=== PATIENT | female | born 1950 | race Caucasian/White ===

== ENCOUNTER 2016-12-17 11:08 | Observation (INO) | payer MEDICARE, OTHER ==
[~2016-12-17] VITALS: Ht 152.4 cm; Wt 125.6 kg
[~2016-12-17 11:08] MED LIST: ASPI-535 PO; BENA1TAB3 PO; DOCU-144 PO; DULO30CA45 PO; FAMO40TA38 PO; HYDR-762 PO; HYDR25TA6 PO; ICNCLON PO; INSU100V23 SC; LAS20I IV; LEVEM SQ; METO-448 PO; POTA10TA97 PO; SIMV40TA2 PO
--- NOTE | 2016-12-17 11:44 | ERA ---
ER Documentation Chief Complaint Date/Time DATE: 12/17/16 TIME: 11:44 Chief Complaint FEELS TIRED, FROM WOUND CARE PREVENTION HPI The patient is a 65-year-old female, presenting to the ER from the wound care center because of nausea and high blood glucose of 305. She complains of feeling tired for the last 12 hours, denies syncope, near syncope, neck pain, chest pain. She he has chronic shortness of breath, denies pain, vomiting, dysuria, diarrhea. She has been going to the wound care center for her chronic bilateral lower extremity wound, c/o of left leg pain for a few weeks. She does not smoke nor drink Past Medical history: Diabetes mellitus, hypertension, dyslipidemia, CAD, history of CHF Past Surgical history: CABG 15 years ago ROS All systems reviewed and are negative except as per history of present illness. Medications Home Meds Reported Medications Insulin Aspart* (Novolog Insulin Pen*) 100 Unit/Ml Soln, 30 UNIT SC WITH MEALS, EA 12/17/16 Insulin Glargine* (Lantus*) 100 Unit/Ml Soln, 50 UNIT SC QHS, #1 VIAL 12/17/16 Apixaban* (Eliquis*) 2.5 Mg Tablet, 2.5 MG PO BID, TAB 12/17/16 Carvedilol* (Carvedilol*) 6.25 Mg Tablet, 6.25 MG PO BID, #60 TAB 12/17/16 Gabapentin* (Gabapentin*) 300 Mg Capsule, 300 MG PO TID, #90 CAP 12/17/16 Simvastatin* (Zocor*) 40 Mg Tablet, 40 MG PO QHS, #30 TAB 12/17/16 Bumetanide* (Bumetanide*) 1 Mg Tablet, 1 MG PO DAILY, TAB 12/17/16 Furosemide* (Furosemide*) 40 Mg Tablet, 40 MG PO BID, TAB 12/17/16 Discontinued Reported Medications Insulin Regular, Human* (Novolin R*) 100 U/Ml Vial, 0 SC AC MEALS AND BEDTIME 08/30/11 Hydrocodone Bit-Acetaminophen* (Melvin*) 1 Tab Tablet, 1 TAB PO TID 08/30/11 Metoprolol Tartrate* (Lopressor*) 25 Mg Tab, 25 MG PO Q12 08/30/11 Furosemide* (Lasix*) 10 Mg/Ml Soln, 20 MG IV Q8 08/30/11 Potassium Chloride (Klor-Con) 10 Meq Tablet.sa, 10 MEQ PO TID 08/30/11 Insulin Detemir* (Levemir*) 100 U/Ml Vial, 50 U SQ DAILY 08/30/11 Hydrochlorothiazide (Hydrochlorothiazide) 25 Mg Tablet, 25 MG PO DAILY 08/30/11 Benazepril/Hydrochlorothiazide (Lotensin Hct 20-12.5 Tablet) 1 Tab Tablet, 1 TAB PO DAILY 08/30/11 Docusate Sodium* (Colace*) 100 Mg Capsule, 100 MG PO BID 08/30/11 Duloxetine Hcl* (Cymbalta*) 30 Mg Capsule.dr, 30 MG PO BID 08/30/11 Clonidine (Clonidine (Pediatric Compound)) 0.1 Mg/Ml Susp, 2 MG PO BID 08/30/11 Aspirin Ec (Aspir 81) 81 Mg Tablet.dr, 81 MG PO DAILY 08/30/11 Simvastatin* (Zocor*) 40 Mg Tablet, 40 MG PO HS 08/30/11 Famotidine* (Pepcid*) 40 Mg Tablet, 40 MG PO DAILY 08/30/11 Allergies Allergies: Coded Allergies: No Known Allergy (Verified , 12/17/16) PMhx/Soc History of Surgery: Yes Anesthesia Reaction: No Hx Neurological Disorder: No Hx Respiratory Disorders: No Hx Cardiac Disorders: Yes (CABG 8yrs ago,perm, HTN,Dyslipidimia) Hx Psychiatric Problems: No Hx Miscellaneous Medical Probl: Yes (dyslipidimia, HTN) Hx Alcohol Use: No Hx Substance Use: No Hx Tobacco Use: No Physical Exam Vitals Vital Signs Date Time Temp Pulse Resp B/P Pulse Ox O2 Delivery O2 Flow Rate FiO2 12/17/16 17:24 77 18 207/89 96 Room Air 12/17/16 16:31 79 18 166/139 96 Room Air 12/17/16 14:54 86 18 192/92 96 Room Air 12/17/16 13:30 88 18 193/103 96 Room Air 12/17/16 11:15 98.2 74 20 213/101 99 Physical Exam Const: No acute distress. Obese Head: Atraumatic. Eyes: Normal Conjunctiva. ENT: Normal External Ears, Nose and Mouth. Neck: Full range of motion. No meningismus. Resp: Basilar crackle Cardio: Regular rate and rhythm. Abd: Soft, obese, normal bowel sounds, non tender. Skin: No petechiae or rashes. Back: No midline or flank tenderness. Ext: Bilateral leg are minimal erythematous, mild edematous, minimal left calf tenderness Neur: Awake and alert. No focal deficit Psych: Normal Mood and Affect. Result Diagram: 12/17/16 1150 12/17/16 1150 Results 24 hrs Laboratory Tests Test 12/17/16 11:50 White Blood Count 6.310^3/ul Red Blood Count 4.1910^6/ul Hemoglobin 12.6g/dl Hematocrit 38.2% Mean Corpuscular Volume 91.2fl Mean Corpuscular Hemoglobin 30.1pg Mean Corpuscular Hemoglobin Concent 33.0g/dl Red Cell Distribution Width 12.9% Platelet Count 67400^3/UL Mean Platelet Volume 12.6fl Neutrophils % 68.0% Lymphocytes % 20.1% Monocytes % 10.0% Eosinophils % 0.9% Basophils % 0.5% Nucleated Red Blood Cells % 0.0/100WBC Neutrophils # 4.310^3/ul Lymphocytes # 1.310^3/ul Monocytes # 0.610^3/ul Eosinophils # 0.110^3/ul Basophils # 0.010^3/ul Nucleated Red Blood Cells # 0.010^3/ul Prothrombin Time 15.8Sec Prothrombin Time Ratio 1.2 INR International Normalized Ratio 1.25 Activated Partial Thromboplast Time 26.9Sec Sodium Level 142mmol/L Potassium Level 4.2mmol/L Chloride Level 104mmol/L Carbon Dioxide Level 28mmol/L Anion Gap 14 Blood Urea Nitrogen 24mg/dl Creatinine 1.13mg/dl Glucose Level 315mg/dl Calcium Level 8.5mg/dl Troponin I 0.024ng/ml B-Type Natriuretic Peptide 51115ED/ML Current Medications Medications (Trade) Dose Ordered Sig/Herlinda Route PRN Reason Start Time Stop Time Status Last Admin Dose Admin Furosemide (Lasix) 40 mg ONCE ONCE IV 12/17/16 14:00 12/17/16 14:01 DC 12/17/16 14:47 Nitroglycerin (Nitroglycerin 2% Oint) 1 inch ONCE ONCE TD 12/17/16 15:00 12/17/16 15:01 DC 12/17/16 14:47 Carvedilol (Coreg) 6.25 mg BID PO 12/17/16 21:00 Gabapentin (Neurontin) 300 mg TID PO 12/17/16 21:00 Atorvastatin Calcium (Lipitor) 20 mg DAILY@21 PO 12/17/16 21:00 Clonidine (Catapres) 0.2 mg ONCE ONCE PO 12/17/16 17:00 12/17/16 17:12 DC 12/17/16 17:22 Miscellaneous Information (* Miscellaneous Pharmacy Order) Discontinue current oral sulfonylur... ONCE ONCE XX 12/17/16 17:00 12/17/16 17:12 DC Diagnostic Test (Pha) (Accu-Chek) 1 ea 02 XX 12/18/16 02:00 Insulin Glargine (Lantus) 25 unit DAILY@08 SC 12/18/16 08:00 Insulin Aspart (Novolog Insulin Pen) 8 unit WITH MEALS SC 12/17/16 18:00 Miscellaneous Information (* Miscellaneous Pharmacy Order) HYPOGLYCEMIA PROTOCOL w... ONCE ONCE XX 12/17/16 17:00 12/17/16 17:12 DC Insulin Aspart (Novolog Insulin Pen) NOVOLOG *MILD* ALGORITHM WITH MEALS BEDTIME SC 12/17/16 18:00 Miscellaneous Information (* Miscellaneous Pharmacy Order) Discontinue all previ... ONCE ONCE XX 12/17/16 17:00 12/17/16 17:12 DC Lisinopril (Zestril) 5 mg DAILY PO 12/18/16 09:00 Furosemide (Lasix) 20 mg BID DIURETICS IV 12/17/16 18:00 IV Flush (NS 3 ml) 3 ml PER PROTOCOL IV 12/17/16 17:30 Ondansetron HCl (Zofran Inj) 4 mg Q6H PRN IV NAUSEA AND/OR VOMITING 12/17/16 17:30 Acetaminophen (Tylenol Tab) 650 mg Q6H PRN PO PAIN LEVEL 1-3 OR FEVER 12/17/16 17:30 Acetaminophen/ Hydrocodone Bitart (Melvin (5/325)) 1 tab Q6H PRN PO PAIN LEVEL 4-6 12/17/16 17:30 Heparin Sodium (Porcine) (Heparin (5000 Units/0.5 ml)) 5,000 unit Q8 SC 12/17/16 22:00 Miscellaneous Information 1 ea NOTE XX 12/17/16 17:30 Glucose (Glutose) 15 gm Q15M PRN PO DECREASED GLUCOSE 12/17/16 17:30 Glucose (Glutose) 22.5 gm Q15M PRN PO DECREASED GLUCOSE 12/17/16 17:30 Dextrose (D50w Syringe) 25 ml Q15M PRN IV DECREASED GLUCOSE 12/17/16 17:30 Dextrose (D50w Syringe) 50 ml Q15M PRN IV DECREASED GLUCOSE 12/17/16 17:30 Glucagon (Glucagen) 1 mg Q15M PRN IM DECREASED GLUCOSE 12/17/16 17:30 Glucose (Glutose) 15 gm Q15M PRN BUCCAL DECREASED GLUCOSE 12/17/16 17:30 Procedures/[place] [id number] Radiology Main Line: [phone] DIAGNOSTIC IMAGING REPORT Patient: NANCY FAUST : 1950 Age: 65 Sex: F MR #: [id number] DOS: 12/17/16 1151 Ordering MD: CATRACHITO DONOVAN MD Location: E/R Room/Bed: PROCEDURE: US Lower extremity Venous. CLINICAL INDICATION: Bilateral lower extremity edema TECHNIQUE: Multiple sonographic images of the bilateral lower extremity deep venous system was obtained utilizing grayscale, color-flow, compressive sonography and doppler imaging with augmentation. The images were reviewed on a PACS workstation. COMPARISON: None. FINDINGS: The study is suboptimal due to severe edema. There is normal compressibility and flow within the bilateral common femoral, femoral , posterior tibial and popliteal veins. RPTAT: AA IMPRESSION: No sonographic evidence for deep venous thrombosis. .Luisito Zacarias MD, Date Time Electronically viewed and signed by .Luisito Zacarias MD, on 12/17/2016 12: 50 .S/ CC: CATRACHITO DONOVAN MD [place] [address] [place] [address] Radiology Main Line: [phone] DIAGNOSTIC IMAGING REPORT Patient: NANCY FAUST : 1950 Age: 65 Sex: F MR #: [id number] DOS: 12/17/16 1151 Ordering MD: CATRACHITO DONOVAN MD Location: E/R Room/Bed: PROCEDURE: XR Chest. CLINICAL INDICATION: Chest pain TECHNIQUE: Single frontal view of the chest was obtained COMPARISON: CR PORT CHEST 01/20/2009 FINDINGS: The heart is enlarged. The thoracic aorta is calcified. The patient is status post sternotomy. The superior most fixation wire is broken. The lungs are clear. There is mild elevation of the right diaphragm. There is no pleural effusion or pneumothorax. RPTAT: AA IMPRESSION: Moderate cardiomegaly. The patient is status post sternotomy. The superior most fixation sternal wire is broken. Calcified aorta consistent with atherosclerotic disease. .Luisito Zacarias MD, MD Date Time Electronically viewed and signed by .Luisito Zacarias MD, MD on 12/17/2016 13: 18 .S/ CC: CATRACHITO DONOVAN MD EKG: Read by emergency physician Rate/Rhythm: Normal Sinus Rhythm 72 beats/min QRS, ST, T-waves: No ST elevation, no T inversion, RBBB Impression: Abnormal EKG MEDICAL MAKING DECISION: The patient is a 65-year-old female, presenting with acute CHF exacerbation, acute accelerated hypertension. She was treated with Lasix 40 mg IV and 1 inch of nitroglycerin ointment to the chest wall with good response The differential diagnoses considered include but are not limited to asthma, COPD, pneumonia, pulmonary embolus, pleural effusion, congestive heart failure. Departure Diagnosis: Primary Impression: CHF (congestive heart failure) Additional Impressions: Accelerated hypertension Thrombocytopenia Condition: Stable Comments I discussed the findings with the patient. I discussed the patient with the on- call hospitalist Dr. Tam at 2:30 PM who was made aware of the lab, the treatment, the patient condition. The patient is admitted to CATRACHITO Dunne MD Dec 17, 2016 11:44
[2016-12-17 12:13] LABS: BASOPHILS % 0.5 % (0.0-2.0); EOSINOPHILS # 0.1 10^3/ul (0.0-0.5); EOSINOPHILS % 0.9 % (0.0-7.0); HEMATOCRIT 38.2 % (37.0-47.0); HEMOGLOBIN 12.6 g/dl (12.0-16.0); LYMPHOCYTES # 1.3 10^3/ul (0.8-2.9); LYMPHOCYTES % 20.1 % (15.0-51.0); MEAN CORPUSCULAR HEMOGLOBIN 30.1 pg (29.0-33.0); MEAN CORPUSCULAR VOLUME 91.2 fl (82.0-101.0); MEAN PLATELET VOLUME 12.6 fl (7.4-10.4); MONOCYTE # 0.6 10^3/ul (0.3-0.9); NEUTROPHIL # 4.3 10^3/ul (1.6-7.5); PLATELET COUNT 125 10^3/UL (140-415); RED BLOOD COUNT 4.19 10^6/ul (4.20-5.40); RED CELL DISTRIBUTION WIDTH 12.9 % (11.5-14.5); WHITE BLOOD COUNT 6.3 10^3/ul (4.8-10.8)
[2016-12-17 12:28] LABS: CALCIUM 8.5 mg/dl (8.4-10.2); CREATININE 1.13 mg/dl (0.44-1.00); PARTIAL THROMBOPLASTIN TIME 26.9 Sec (25.0-35.0); POTASSIUM 4.2 mmol/L (3.5-5.1)
[2016-12-17 12:36] LABS: INR 1.25; PROTIME 15.8 Sec (12.2-14.2); PT RATIO 1.2
[2016-12-17 12:41] LABS: TROPONIN-I 0.024 ng/ml (0.00-0.12)
--- NOTE | 2016-12-17 12:50 | RADRPT ---
PROCEDURE: US Lower extremity Venous. CLINICAL INDICATION: Bilateral lower extremity edema TECHNIQUE: Multiple sonographic images of the bilateral lower extremity deep venous system was obt ained utilizing grayscale, color-flow, compressive sonography and doppler imaging with augmentation. The images were reviewed on a PACS workstation. COMPARISON: None. FINDINGS: The study is suboptimal due to severe edema. There is normal compressibility and flow within the bilateral common femoral, femoral , posterior ti bial and popliteal veins. RPTAT: AA IMPRESSION: No sonographic evidence for deep venous thrombosis. .Luisito Zacarias MD, MD Date Time Electronically viewed and signed by .Lusiito Zacarias MD, on 12/17/2016 12:50 .S/
--- NOTE | 2016-12-17 13:19 | RADRPT ---
PROCEDURE: XR Chest. CLINICAL INDICATION: Chest pain TECHNIQUE: Single frontal view of the chest was obtained COMPARISON: CR PORT CHEST 01/20/2009 FINDINGS: The heart is enlarged. The thoracic aorta is calcified. The patient is status post sternotomy. The superior most fixation wire is broken. The lungs are clear. There is mild elevation of the right diaphragm. There is no pleural effusion or pneumothorax. RPTAT: AA IMPRESSION: Moderate cardiomegaly. The patient is status post sternotomy. The superior most fixation sternal wire is broken. Calcified aorta consistent with atherosclerotic disease. .Luisito Zacarias MD, MD Date Time Electronically viewed and signed by .Luisito Zacarias MD, on 12/17/2016 13:18 .S/
[2016-12-17] MEDS ORDERED: FUROSEMIDE 40 MG INJ IV ONE (14:00)
[2016-12-17] MEDS ORDERED: FURO40TA4 PO (14:32)
[2016-12-17] MEDS ORDERED: BUME1TAB18 PO (14:33)
[2016-12-17] MEDS ORDERED: SIMV40TA2 PO (14:33)
[2016-12-17] MEDS ORDERED: GABA300C16 PO (14:34)
[2016-12-17] MEDS ORDERED: CARV6.2579 PO (14:35)
[2016-12-17] MEDS ORDERED: APIX2.5T PO (14:35)
[2016-12-17] MEDS ORDERED: NITROGLYCERIN 2% 1 GM OINT PKT TD ONE (15:00)
[2016-12-17] MEDS ORDERED: LANT3I SC (15:00)
[2016-12-17] MEDS ORDERED: NOVO3I SC (15:01)
--- NOTE | 2016-12-17 16:50 | HP ---
Date/Time of Note Date/Time of Note DATE: 12/17/16 TIME: 16:49 Assessment/Plan VTE Prophylaxis VTE Prophylaxis Intervention: heparin Assessment/Plan Chief Complaint/Hosp Course 1. Hypertensive urgency. The patient has been noncompliant with all her home medications. The patient will be started on appropriate antihypertensives. Patient will be started on CL inhibitors since the patient has underlying diabetes. 2. Type 2 diabetes mellitus with underlying hyperglycemia. The patient will be started on sliding scale insulin along with basal insulin and pre-meal insulin. Hemoglobin A1c will be obtained to evaluate the blood glucose control over the past few weeks. 3. Bilateral lower extremity lymphedema with venous stasis changes. The patient follows up with amputation prevention center. Patient has no evidence of any underlying cellulitis. 4. CAD. Status post CABG. The patient will be continued on her cardiac medications. 5. Possible underlying CHF. Systolic versus diastolic dysfunction. No evidence of any exacerbation. Will obtain a 2D echocardiogram to evaluate the LVEF. Plan: The patient will be admitted to inpatient telemetry floor. The patient will be started on a carbohydrate controlled diet. The patient will be started on DVT prophylaxis. The patient will remain a full code. Activities will be bedrest. The rest of the patient's management will be based on the clinical course and the results of diagnostic studies. Based on the patient's clinical presentation, she most probably requires at least 1 midnights' stay for further management and evaluation of her clinical presentation. The case and management of this patient was fully discussed with Dr. Tam. Problems: HPI/ROS Admit Date/Time Admit Date/Time ROS Reason for admission: Elevated blood pressure and elevated blood sugars. This is a 65-year-old female with past medical history of CAD status post CABG, essential hypertension, diabetes mellitus, dyslipidemia, osteoarthritis, and peripheral neuropathy who was visiting the wound care clinic for management of her bilateral lower extremity venous stasis changes. Over there, the patient was noticed to have high blood glucose and elevated blood pressure readings. Consequently, the patient was transferred to the emergency room at [facility]. The patient denied any dyspnea. The patient denied any chest pain. She denied any nausea, vomiting, diaphoresis, dysuria, or hematuria. The patient verbalized that she has not been compliant with her home antihypertensives and home antidiabetic medications. The patient is not the best historian. She was not sure of her home medications. In the emergency room, the patient was noticed to have elevated BNP [[id number]]. The patient's chest x-ray showed cardiomegaly with no significant pulmonary vascular congestion. The patient's 12-lead EKG showed sinus rhythm with right bundle branch block. The patient's bilateral lower extremity venous Doppler study was negative for any DVT. The patient had a blood pressure of 213/101 mm Hg. She was treated with IV Lasix and transdermal nitroglycerin in the emergency room. Constitutional: no complaints Eyes: no complaints ENT: no complaints Respiratory: no complaints Cardiovascular: edema (Bilateral lower extremity), paroxysmal nocturnal dyspnea Gastrointestinal: no complaints Genitourinary: no complaints Musculoskeletal: swelling (Bilateral lower extremity) Skin: skin lesions (Bilateral lower extremity) Neurologic: no complaints Endocrine: no complaints Lymphatic: lymphadema Psychological: no complaints Immunologic: no complaints PMH/Family/Social Past Medical History Medical History: coronary artery disease, diabetes, high cholesterol, hypertension, other (Osteoarthritis, peripheral neuropathy) Past Surgical History Past Surgical Hx: coronary bypass surgery Social History The patient lives with her son. Wheelchair-bound. Alcohol Use: none Smoking Status: Former smoker Drug Use: none Exam/Review of Systems Vital Signs Vitals Vital Signs Date Time Temp Pulse Resp B/P Pulse Ox O2 Delivery O2 Flow Rate FiO2 12/17/16 16:31 79 18 166/139 96 Room Air 12/17/16 11:15 98.2 Exam Exam General: Obese 65 year-old female lying in bed in no apparent distress. HEENT: Normocephalic, atraumatic. Eyes: Anicteric sclerae, conjunctivae clear. ENT: Nasal septum midline, oral mucosa moist. Neck supple, no JVD noticed. Respiratory: Bilaterally diminished breath sounds. No use of accessory muscles of respiration. No adventitious breath sounds. Cardiovascular: S1, S2 heard. No murmurs or gallops. Abdomen: Soft, nontender, and nondistended. Bowel sounds positive in all 4 quadrants. Genitourinary: Deferred. Extremities: Bilateral lower extremity erythema and venous stasis changes. Pedal pulses nonpalpable. Neurologic: Cranial nerves II through XII grossly intact. The patient is awake, alert, and oriented. Labs Result Diagram: 12/17/16 1150 12/17/16 1150 Medications Medications Current Medications Carvedilol (Coreg) 6.25 mg BID PO ; Start 12/17/16 at 21:00 Gabapentin (Neurontin) 300 mg TID PO ; Start 12/17/16 at 21:00 Atorvastatin Calcium (Lipitor) 20 mg DAILY@21 PO ; Start 12/17/16 at 21:00 Clonidine (Catapres) 0.2 mg ONCE ONCE PO ; Start 12/17/16 at 17:00; Stop at 17:01; Status UNV Miscellaneous Information (* Miscellaneous Pharmacy Order) Discontinue current oral sulfonylur... ONCE ONCE XX ; Start 12/17/16 at 17:00; Stop 12/17/16 at 17:01; Status UNV Diagnostic Test (Pha) (Accu-Chek) 1 ea XX ; Start 12/18/16 at 02:00; Status UNV Insulin Glargine (Lantus) 25 unit DAILY@08 SC ; Start 12/18/16 at 08:00; Status UNV Miscellaneous Information (* Miscellaneous Pharmacy Order) HYPOGLYCEMIA PROTOCOL w... ONCE ONCE XX ; Start 12/17/16 at 17:00; Stop 12/17/16 at 17:01 ; Status UNV Miscellaneous Information (* Miscellaneous Pharmacy Order) Discontinue all previ... ONCE ONCE XX ; Start 12/17/16 at 17:00; Stop 12/17/16 at 17:01; Status UNV Lisinopril (Zestril) 5 mg DAILY PO ; Start 12/18/16 at 09:00; Status UNV Procedures Procedures CXR IMPRESSION: Moderate cardiomegaly. The patient is status post sternotomy. The superior most fixation sternal wire is broken. Calcified aorta consistent with atherosclerotic disease. NYA MCNEILL NP Dec 17, 2016 16:50
[2016-12-17] MEDS ORDERED: DEXTROSE 50% 50 ML SYRINGE IV PRN ×2 (17:30)
[2016-12-17] MEDS ORDERED: NACL 0.9% 3 ML SYG IV SCH (17:30)
[2016-12-17] MEDS ORDERED: GLUCAGON 1 MG INJ IM PRN (17:30)
[2016-12-17] MEDS ORDERED: ONDANSETRON 4 MG INJ IV PRN (17:30)
[2016-12-17] MEDS ORDERED: GLUCOSE GEL 15 GRAM TUBE BUCCAL PRN (17:30)
[2016-12-17] MEDS ORDERED: ACETAMINOPHEN 325 MG TAB PO PRN (17:30)
[2016-12-17] MEDS ORDERED: GLUCOSE GEL 15 GRAM TUBE PO PRN ×2 (17:30)
[2016-12-17] MEDS ORDERED: HYDROCODONE/APAP (5/325) TAB PO PRN (17:30)
[2016-12-17] MEDS: INSULIN ASPART [NOVOLOG] 3 ML PEN SC SCH ×3 (20:34→22:52)
[2016-12-17] MEDS: FUROSEMIDE 20 MG INJ IV SCH (20:37)
[2016-12-17 20:43] VITALS: TEMP 98.2
[2016-12-17 21:35] VITALS: BP 188/75; RESP 20
[2016-12-17 22:25] VITALS: PULSE 61
[2016-12-17 22:26] VITALS: PULSE 48
[2016-12-17] MEDS: GABAPENTIN 300 MG CAP PO SCH (22:29)
[2016-12-17] MEDS: ATORVASTATIN 20 MG TAB PO SCH (22:30)
[2016-12-17] MEDS: HEPARIN 5,000 UNIT/0.5 ML VIAL SC SCH (22:43)
[2016-12-17 23:00] VITALS: Ht 152.4 cm; Wt 125.6 kg
[2016-12-18] VITALS (17 sets, daily range): BP systolic 121–196; BP diastolic 60–86; PULSE 38–72; RESP 17–20
[2016-12-18] MEDS ORDERED: hydrALAzine 20 MG INJ IV PRN (01:30)
[2016-12-18] MEDS: ACCU-CHEK XX SCH (02:00)
[2016-12-18] MEDS: FUROSEMIDE 20 MG INJ IV SCH ×2 (06:26→17:25)
[2016-12-18] MEDS: HEPARIN 5,000 UNIT/0.5 ML VIAL SC SCH ×3 (06:31→21:29)
[2016-12-18 07:43] LABS: ABNORMAL IP MESSAGE 1; BASOPHIL # 0.1 10^3/ul (0.0-0.1); BASOPHILS % 0.7 % (0.0-2.0); EOSINOPHILS # 0.2 10^3/ul (0.0-0.5); EOSINOPHILS % 2.4 % (0.0-7.0); HEMATOCRIT 35.6 % (37.0-47.0); HEMOGLOBIN 11.8 g/dl (12.0-16.0); LYMPHOCYTES # 1.2 10^3/ul (0.8-2.9); LYMPHOCYTES % 16.7 % (15.0-51.0); MEAN CORPUSCULAR HEMOGLOBIN 30.2 pg (29.0-33.0); MEAN CORPUSCULAR HGB CONC 33.1 g/dl (32.0-37.0); MEAN PLATELET VOLUME 13.3 fl (7.4-10.4); MONOCYTE # 0.8 10^3/ul (0.3-0.9); MONOCYTES % 10.9 % (0.0-11.0); NEUTROPHIL # 5.1 10^3/ul (1.6-7.5); PLATELET COUNT 115 10^3/UL (140-415); RED BLOOD COUNT 3.91 10^6/ul (4.20-5.40); RED CELL DISTRIBUTION WIDTH 13.2 % (11.5-14.5); WHITE BLOOD COUNT 7.4 10^3/ul (4.8-10.8)
[2016-12-18 07:57] LABS: CHOL/HDL RATIO 2.8 RATIO; MAGNESIUM 1.9 mg/dl (1.7-2.5); PHOSPHORUS 3.7 mg/dl (2.5-4.9)
[2016-12-18 08:00] LABS: POSITIVE DIFF @See below
[2016-12-18 08:15] LABS: ALBUMIN 2.5 g/dl (3.3-4.9); ALBUMIN/GLOBULIN RATIO 0.69; BILIRUBIN,INDIRECT 0.5 mg/dl (0-1.1); BILIRUBIN,TOTAL 0.5 mg/dl (0.2-1.3); CALCIUM 8.5 mg/dl (8.4-10.2); CREATININE 1.41 mg/dl (0.44-1.00); POTASSIUM 3.5 mmol/L (3.5-5.1); TOTAL PROTEIN 6.1 g/dl (6.1-8.1)
[2016-12-18] MEDS: INSULIN ASPART [NOVOLOG] 3 ML PEN SC SCH ×7 (09:01→21:00)
[2016-12-18] MEDS: GABAPENTIN 300 MG CAP PO SCH ×3 (09:04→21:24)
[2016-12-18] MEDS: LISINOPRIL 5 MG TAB PO SCH (09:04)
--- NOTE | 2016-12-18 11:08 | RADRPT ---
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 Physician: NYA MCNEILL Quality: Adequate Procedures: Transthoracic echocardiogram with complete 2D, M-Mode, and doppler examination. Indications: Evaluate Left Ventricular function. 2D/M Mode Doppler Measurement Value Normal Ranges Measurement Value Normal Ranges LVIDd 2D 5.7 3.5 - 5.6 cm DARIO Vmax 0.5 cm2 LVIDs 2D 4.5 2.1 - 4.1 cm DARIO VTI 0.4 cm2 FS 2D 21.9 % AV Mean Manuel 2.7 m/sec LVPWd 2D 1.3 0.6 - 1.1 cm AV Mean PG 35.0 mmHg IVSd 2D 1.3 0.6 - 1.1 cm AV Peak Manuel 4.0 m/sec IVS/LVPW 2D 1.0 AV Peak PG 62.0 mmHg AoR Diam 2D 2.2 2.0 - 3.7 cm AV VTI 106.0 cm LA/Ao 2D 2 0 - 1 LVOT Mean Manuel 0.7 m/sec EDV 2D 186.0 cm3 LVOT Mean PG 2.0 mmHg ESV 2D 88.7 cm3 LVOT Peak Manuel 1.0 m/sec LA Dimen 2D 4.8 2.3 - 4.0 cm LVOT Peak PG 4.0 mmHg LVOT Diam 1.5 cm LVOT VTI 25.4 cm LVOT Area 1.8 cm2 MV E Peak Manuel 1.1 m/sec MV A Peak Manuel 0.8 m/sec MV E/A 1.3 MV Decel Time 236 msec MV E/A 1.3 MR Peak PG 44.0 mmHg MR Peak Manuel 3.3 m/sec TR Peak Manuel 2.6 m/sec TR Peak PG 28.0 mmHg RVSP 38.0 mmHg Findings Left Ventricle: Mild concentric left ventricular hypertrophy. Mild enlargement of left ventricle cavity. Mild global left ventricular systolic dysfunction. Ejection fraction is visually estimated at 45 %. Abnormal Diastolic Function. Right Ventricle: Normal right ventricular size. Mild right ventricular hypokinesis. Left Atrium: There is moderate enlargement of left atrium. Right Atrium: The right atrium is normal in size. Mitral Valve: Mild mitral leaflet calcification. Mild mitral annular calcification. Mild mitral valve regurgitation. Aortic Valve: Aortic valve not well visualized. Severe aortic stenosis. Aortic valve Max velocity 3.95 m/sec. Max PG 62.00 mmHg. Mean PG 35.00 mmHg. Aortic valve area 0.5 cm2. Aortic cusps appear moderately calcified. Tricuspid Valve: Normal appearance of the tricuspid valve. Estimated peak PA systolic pressure 38 mmHg. There is mild tricuspid regurgitation. Pulmonic Valve: Pulmonic valve not well visualized. There is trace pulmonic regurgitation. Pericardium: Normal pericardium with no significant pericardial effusion. Aorta: Normal aortic root. IVC: Dilated IVC without respiratory collapse consistent with elevated right atrial pressure. Conclusions 1.Mild concentric left ventricular hypertrophy. Mild enlargement of left ventricle cavity. Mild global left ventricular systolic dysfunction. Ejection fraction is visually estimated at 45 %. Abnormal Diastolic Function. 2.There is moderate enlargement of left atrium. 3.Mild mitral leaflet calcification. Mild mitral annular calcification. Mild mitral valve regurgitation. 4.Aortic valve not well visualized. Severe aortic stenosis. Aortic valve Max velocity 3.95 m/sec. Max PG 62.00 mmHg. Mean PG 35.00 mmHg. Aortic valve area 0.5 cm2. Aortic cusps appear moderately calcified. 5.Normal appearance of the tricuspid valve. Estimated peak PA systolic pressure 38 mmHg. There is mild tricuspid regurgitation. 6.VERY SUBOPTIMAL STUDY. Electronically Signed By: Jhony Ramos 18-Dec-2016 11:07:37 -0700 Patient Name: NANCY FAUST Study Date: 18-Dec-2016 [id number]
--- NOTE | 2016-12-18 11:39 | CONS ---
Date/Time of Note Date/Time of Note DATE: 12/18/16 TIME: 11:29 Assessment/Plan Assessment/Plan Chief Complaint/Hosp Course 1. CHF: chronic due to valvular heart disease and systolic and diastolic heart failure 2. : probably severe. 3/ CAD 4./ HX PCI LCX 2011 5. HX CABG: !~15-20 years ago 6. DM: poorly controlled. 7 .HTN: now under control on meds 8.. dyslipidemia 9. morbid obeisty 10/ chronic venous stasis 11. PAD REC: ASA cont current coreg and CL-I Family to bring home meds for review cont lastix for now statin aggressive risk factor modifcation including DM control outpt evaluation for MINGO elective RHC/LHC as outpt to further evlaluate for . consider ID eval and clearance for AVR. will ask Dr Vann to evaluate pt to see if possibly a candidate for AVR or not. if not will consider TAVR if severe on cath. Thank you for his referral. We will continue to follow along with you. BRIDGET SAMS MD FAC Problems: Consultation Date/Type/Reason Admit Date/Time Date of Consultation: Dec 18, 2016 Type of Consultation: cardiology Reason for Consultation CHF/ CAD, Referring Provider: NYA MCNEILL NP Hx of Present Illness CC: HTN HPI: Thank you for this referral. History was obtained from the patient from discussion with her son for extensive review of the old chart also discussion with the physicians in the staff including Jarek Rousseau NP. This is a pleasant 65-year-old female with history of coronary artery disease status post coronary artery bypass graft who was admitted from wound care because of a high blood pressure. Patient is a poor historian. According to the Saturday she has had increasing shortness of breath and dyspnea on exertion. She denies any chest pain or pressure to me. She goes to the wound care for her and wounds of the lower extremity and lower extremity edema. She was noted to have severe hypertension and was admitted to the emergency room. Currently she has been placed on medication her blood pressure significantly improved. She has stated that she is compliant with her medication takes medication regularly but she does not know what she takes. Allergies: No known drug allergies. MEDS: She does not remember at this point. Inpatient medications were reviewed as per medical reconciliation sheet PMH: 1. CAD, HX CABG about 15-20 years ago 2. PCI LCX 2011 3. CHF 4. Cardiomyopathy 5. DM 6/ Dyslipidemia 7. 8. morbid obesity, ? MINGO 9. PAD and LE wounds social : Patient denies any active tobacco alcohol drug abuse to me. family hx: no reported early CAD ROS; as above only. she denies all others to me Eyes: no complaints ENT: no complaints Respiratory: no complaints Cardiovascular: edema (Bilateral lower extremity), paroxysmal nocturnal dyspnea Gastrointestinal: no complaints Genitourinary: no complaints Musculoskeletal: swelling (Bilateral lower extremity) Skin: skin lesions (Bilateral lower extremity) Neurologic: no complaints Lymphatic: lymphadema Psychological: no complaints Immunologic: no complaints Past Medical History Medical History: coronary artery disease, diabetes, high cholesterol, hypertension, other (Osteoarthritis, peripheral neuropathy) Past Surgical History Past Surgical Hx: coronary bypass surgery Social History Alcohol Use: none Smoking Status: Unknown if ever smoked Drug Use: none Exam/Review of Systems Vital Signs Vitals Vital Signs Date Time Temp Pulse Resp B/P Pulse Ox O2 Delivery O2 Flow Rate FiO2 12/18/16 08:00 45 12/18/16 07:54 98.1 17 148/63 94 12/17/16 20:43 Room Air Intake and Output 12/17/16 12/17/16 12/18/16 15:00 23:00 07:00 Intake Total 500 ml Output Total 1100 ml Balance -600 ml Exam General: obese female. no acute distress HEENT: NC/AT. pupils are equal. round. NECK: . no stridor. CV: RRR. systolic murmur; no gallop or rubs. PULM: no wheezing . mild basilar rhonchi. GI: SOFT, obese. NT, ND, no rebound or guarding Extremity: + chronic looking B/L LE edema. no clubbing. neuro: awake and alert, OX3. Psych: calm and pleasant rectal: deferred : deferred ECG NSR RBBB ECHO reviewed personally; 1. Mild concentric left ventricular hypertrophy. Mild enlargement of left ventricle cavity. Mild global left ventricular systolic dysfunction. Ejection fraction is visually estimated at 45 %. Abnormal Diastolic Function. 2. There is moderate enlargement of left atrium. 3. Mild mitral leaflet calcification. Mild mitral annular calcification. Mild mitral valve regurgitation. 4. Aortic valve not well visualized. Severe aortic stenosis. Aortic valve Max velocity 3.95 m/sec. Max PG 62.00 mmHg. Mean PG 35.00 mmHg. Aortic valve area 0.5 cm2. Aortic cusps appear moderately calcified. 5. Normal appearance of the tricuspid valve. Estimated peak PA systolic pressure 38 mmHg. There is mild tricuspid regurgitation. 6. VERY SUBOPTIMAL STUDY. Results Result Diagram: 12/18/16 0634 12/18/16 0634 Results 24 hrs Laboratory Tests Test 12/17/16 11:50 12/17/16 22:48 12/18/16 02:03 12/18/16 06:34 White Blood Count 6.3 7.4 Red Blood Count 4.19 L 3.91 L Hemoglobin 12.6 11.8 L Hematocrit 38.2 35.6 L Mean Corpuscular Volume 91.2 91.0 Mean Corpuscular Hemoglobin 30.1 30.2 Mean Corpuscular Hemoglobin Concent 33.0 33.1 Red Cell Distribution Width 12.9 13.2 Platelet Count 125 L 115 L Mean Platelet Volume 12.6 H 13.3 H Neutrophils % 68.0 69.0 Lymphocytes % 20.1 16.7 Monocytes % 10.0 10.9 Eosinophils % 0.9 2.4 Basophils % 0.5 0.7 Nucleated Red Blood Cells % 0.0 0.0 Neutrophils # 4.3 5.1 Lymphocytes # 1.3 1.2 Monocytes # 0.6 0.8 Eosinophils # 0.1 0.2 Basophils # 0.0 0.1 Nucleated Red Blood Cells # 0.0 0.0 Prothrombin Time 15.8 H Prothrombin Time Ratio 1.2 INR International Normalized Ratio 1.25 Activated Partial Thromboplast Time 26.9 Sodium Level 142 139 Potassium Level 4.2 3.5 Chloride Level 104 105 Carbon Dioxide Level 28 28 Anion Gap 14 10 Blood Urea Nitrogen 24 H 28 H Creatinine 1.13 H 1.41 H Glucose Level 315 H 221 H Hemoglobin A1c 8.8 H Calcium Level 8.5 8.5 Troponin I 0.024 B-Type Natriuretic Peptide 34804 H Thyroid Stimulating Hormone (TSH) 3.500 Free Thyroxine 1.63 Bedside Glucose 263 H 235 H Phosphorus Level 3.7 Magnesium Level 1.9 Total Bilirubin 0.5 Direct Bilirubin 0.00 Indirect Bilirubin 0.5 Aspartate Amino Transf (AST/SGOT) 19 Alanine Aminotransferase (ALT/SGPT) 31 Alkaline Phosphatase 301 H Total Protein 6.1 Albumin 2.5 L Globulin 3.60 H Albumin/Globulin Ratio 0.69 Triglycerides Level 108 Cholesterol Level 128 LDL Cholesterol, Calculated 61 HDL Cholesterol 45 Cholesterol/HDL Ratio 2.8 Test 12/18/16 08:32 Bedside Glucose 233 H Medications Medications Current Medications Carvedilol (Coreg) 6.25 mg BID PO Last administered on 12/18/16 09:05; Admin Dose 6.25 MG; Start 12/17/16 at 21:00 Gabapentin (Neurontin) 300 mg TID PO Last administered on 12/18/16 09:04; Admin Dose 300 MG; Start 12/17/16 at 21:00 Atorvastatin Calcium (Lipitor) 20 mg DAILY@21 PO Last administered on 22:30; Admin Dose 20 MG; Start 12/17/16 at 21:00 Diagnostic Test (Pha) (Accu-Chek) 1 ea 02 XX ; Start 12/18/16 at 02:00 Insulin Glargine (Lantus) 25 unit DAILY@08 SC ; Start 12/18/16 at 08:00 Lisinopril (Zestril) 5 mg DAILY PO Last administered on 12/18/16 09:04; Admin Dose 5 MG; Start 12/18/16 at 09:00 Ondansetron HCl (Zofran Inj) 4 mg Q6H PRN IV NAUSEA AND/OR VOMITING; Start at 17:30 Acetaminophen (Tylenol Tab) 650 mg Q6H PRN PO PAIN LEVEL 1-3 OR FEVER; Start 12/17/16 at 17:30 Acetaminophen/ Hydrocodone Bitart ([place] (5/325)) 1 tab Q6H PRN PO PAIN LEVEL 4 -6; Start 12/17/16 at 17:30 Heparin Sodium (Porcine) (Heparin (5000 Units/0.5 ml)) 5,000 unit Q8 SC Last administered on 12/18/16 06:31; Admin Dose 5,000 UNIT; Start 12/17/16 at 22: 00 Miscellaneous Information 1 ea NOTE XX ; Start 12/17/16 at 17:30 Glucose (Glutose) 15 gm Q15M PRN PO DECREASED GLUCOSE; Start 12/17/16 at 17:30 Glucose (Glutose) 22.5 gm Q15M PRN PO DECREASED GLUCOSE; Start 12/17/16 at 17: 30 Dextrose (D50w Syringe) 25 ml Q15M PRN IV DECREASED GLUCOSE; Start 12/17/16 at 17:30 Dextrose (D50w Syringe) 50 ml Q15M PRN IV DECREASED GLUCOSE; Start 12/17/16 at 17:30 Glucagon (Glucagen) 1 mg Q15M PRN IM DECREASED GLUCOSE; Start 12/17/16 at 17: 30 Glucose (Glutose) 15 gm Q15M PRN BUCCAL DECREASED GLUCOSE; Start 12/17/16 at 17:30 Hydralazine HCl (Apresoline) 10 mg Q4H PRN IV ELEVATED BLOOD PRESSURE Last administered on 12/18/16t 02:02; Admin Dose 10 MG; Start 12/18/16 at 01:30 BRIDGET SAMS MD Dec 18, 2016 11:39
[2016-12-18] MEDS: INSULIN GLARGINE [LANtus] 3 ML PEN SC SCH (13:04)
[2016-12-18] MEDS: SPIRONOLACTONE 25 MG TAB PO SCH (13:05)
--- NOTE | 2016-12-18 14:48 | PN ---
Date/Time of Note Date/Time of Note DATE: 12/18/16 TIME: 14:40 Assessment/Plan VTE Prophylaxis VTE Prophylaxis Intervention: heparin Lines/Catheters IV Catheter Type (from [facility]): Saline Lock Assessment/Plan Chief Complaint/Hosp Course 1. Hypertensive urgency. Continue antihypertensives. Adjust to obtain optimal control. 2. Type 2 diabetes mellitus with underlying hyperglycemia. The patient will be continued on sliding scale insulin along with basal insulin and pre-meal insulin. Hemoglobin A1c 8.8. 3. Bilateral lower extremity lymphedema with venous stasis changes. The patient follows up with amputation prevention center. Patient has no evidence of any underlying cellulitis. Venous Doppler negative for any DVT. 4. CAD. Status post CABG. The patient will be continued on her cardiac medications. 5. CHF. Chronic. Systolic and diastolic dysfunction. Optimize cardiac medications. Cardiology following. 6. Aortic stenosis. Cardiac surgery evaluation. 7. Acute kidney injury. Nonoliguric. Etiology could be from hemodynamics along with use of nephrotoxic medications. Use nephrotoxic medications with caution. 8. Obesity. 9. Fluids, electrolytes, and nutrition. Carbohydrate controlled diet. 10. DVT prophylaxis. Subcutaneous heparin. 11. Plan. Continue current management. Optimize cardiac medications and insulin therapy. Await cardiac surgery evaluation. Case discussed with Dr. Tam. Problems: Subjective 24 Hr Interval Summary Free Text/Dictation Denies any chest pain. Exam/Review of Systems Vital Signs Vitals Vital Signs Date Time Temp Pulse Resp B/P Pulse Ox O2 Delivery O2 Flow Rate FiO2 12/18/16 12:05 98.1 50 17 158/69 94 12/17/16 20:43 Room Air Intake and Output 12/17/16 12/17/16 12/18/16 15:00 23:00 07:00 Intake Total 500 ml Output Total 1100 ml Balance -600 ml Exam General: Obese 65 year-old female lying in bed in no apparent distress. HEENT: Normocephalic, atraumatic. Eyes: Anicteric sclerae, conjunctivae clear. ENT: Nasal septum midline, oral mucosa moist. Neck supple, no JVD noticed. Respiratory: Bilaterally diminished breath sounds. No use of accessory muscles of respiration. No adventitious breath sounds. Cardiovascular: S1, S2 heard. Regular rate and rhythm. Abdomen: Soft, nontender, and nondistended. Bowel sounds positive in all 4 quadrants. Genitourinary: Deferred. Extremities: Bilateral lower extremity erythema and venous stasis changes. Pedal pulses nonpalpable. Neurologic: Cranial nerves II through XII grossly intact. The patient is awake, alert, and oriented. Results Result Diagram: 12/18/16 0634 12/18/16 0634 Results 24 hrs Laboratory Tests Test 12/17/16 22:48 12/18/16 02:03 12/18/16 06:34 12/18/16 08:32 Bedside Glucose 263 H 235 H 233 H White Blood Count 7.4 Red Blood Count 3.91 L Hemoglobin 11.8 L Hematocrit 35.6 L Mean Corpuscular Volume 91.0 Mean Corpuscular Hemoglobin 30.2 Mean Corpuscular Hemoglobin Concent 33.1 Red Cell Distribution Width 13.2 Platelet Count 115 L Mean Platelet Volume 13.3 H Neutrophils % 69.0 Lymphocytes % 16.7 Monocytes % 10.9 Eosinophils % 2.4 Basophils % 0.7 Nucleated Red Blood Cells % 0.0 Neutrophils # 5.1 Lymphocytes # 1.2 Monocytes # 0.8 Eosinophils # 0.2 Basophils # 0.1 Nucleated Red Blood Cells # 0.0 Sodium Level 139 Potassium Level 3.5 Chloride Level 105 Carbon Dioxide Level 28 Anion Gap 10 Blood Urea Nitrogen 28 H Creatinine 1.41 H Glucose Level 221 H Calcium Level 8.5 Phosphorus Level 3.7 Magnesium Level 1.9 Total Bilirubin 0.5 Direct Bilirubin 0.00 Indirect Bilirubin 0.5 Aspartate Amino Transf (AST/SGOT) 19 Alanine Aminotransferase (ALT/SGPT) 31 Alkaline Phosphatase 301 H Total Protein 6.1 Albumin 2.5 L Globulin 3.60 H Albumin/Globulin Ratio 0.69 Triglycerides Level 108 Cholesterol Level 128 LDL Cholesterol, Calculated 61 HDL Cholesterol 45 Cholesterol/HDL Ratio 2.8 Test 12/18/16 12:47 Bedside Glucose 166 Medications Medications Current Medications Carvedilol (Coreg) 6.25 mg BID PO Last administered on 12/18/16 09:05; Admin Dose 6.25 MG; Start 12/17/16 at 21:00 Gabapentin (Neurontin) 300 mg TID PO Last administered on 12/18/16 13:05; Admin Dose 300 MG; Start 12/17/16 at 21:00 Atorvastatin Calcium (Lipitor) 20 mg DAILY@21 PO Last administered on 22:30; Admin Dose 20 MG; Start 12/17/16 at 21:00 Diagnostic Test (Pha) (Accu-Chek) 1 ea 02 XX ; Start 12/18/16 at 02:00 Insulin Glargine (Lantus) 25 unit DAILY@08 SC Last administered on 12/18/16 13:04; Admin Dose 25 UNIT; Start 12/18/16 at 08:00 Lisinopril (Zestril) 5 mg DAILY PO Last administered on 12/18/16 09:04; Admin Dose 5 MG; Start 12/18/16 at 09:00 Ondansetron HCl (Zofran Inj) 4 mg Q6H PRN IV NAUSEA AND/OR VOMITING; Start at 17:30 Acetaminophen (Tylenol Tab) 650 mg Q6H PRN PO PAIN LEVEL 1-3 OR FEVER; Start 12/17/16 at 17:30 Acetaminophen/ Hydrocodone Bitart ([place] (5/325)) 1 tab Q6H PRN PO PAIN LEVEL 4 -6; Start 12/17/16 at 17:30 Heparin Sodium (Porcine) (Heparin (5000 Units/0.5 ml)) 5,000 unit Q8 SC Last administered on 12/18/16 06:31; Admin Dose 5,000 UNIT; Start 12/17/16 at 22: 00 Miscellaneous Information 1 ea NOTE XX ; Start 12/17/16 at 17:30 Glucose (Glutose) 15 gm Q15M PRN PO DECREASED GLUCOSE; Start 12/17/16 at 17:30 Glucose (Glutose) 22.5 gm Q15M PRN PO DECREASED GLUCOSE; Start 12/17/16 at 17: 30 Dextrose (D50w Syringe) 25 ml Q15M PRN IV DECREASED GLUCOSE; Start 12/17/16 at 17:30 Dextrose (D50w Syringe) 50 ml Q15M PRN IV DECREASED GLUCOSE; Start 12/17/16 at 17:30 Glucagon (Glucagen) 1 mg Q15M PRN IM DECREASED GLUCOSE; Start 12/17/16 at 17: 30 Glucose (Glutose) 15 gm Q15M PRN BUCCAL DECREASED GLUCOSE; Start 12/17/16 at 17:30 Hydralazine HCl (Apresoline) 10 mg Q4H PRN IV ELEVATED BLOOD PRESSURE Last administered on 12/18/16 02:02; Admin Dose 10 MG; Start 12/18/16 at 01:30 Spironolactone (Aldactone) 25 mg DAILY PO Last administered on 12/18/16t 13:05 ; Admin Dose 25 MG; Start 12/18/16 at 12:00 NAY MCNEILL NP Dec 18, 2016 14:48
[2016-12-18] MEDS: ATORVASTATIN 20 MG TAB PO SCH (21:24)
[2016-12-18] MEDS ORDERED: DIPHENHYDRAMINE 50 MG INJ IV ONE (22:30)
[2016-12-19] VITALS (10 sets, daily range): BP systolic 133–163; BP diastolic 65–72; PULSE 54–63; RESP 20
[2016-12-19] MEDS: ACCU-CHEK XX SCH (02:00)
--- NOTE | 2016-12-19 05:49 | CONS ---
DATE OF ADMISSION: 12/17/2016 DATE OF CONSULTATION: REASON FOR CONSULTATION: Evaluation for aortic stenosis. HISTORY OF PRESENT ILLNESS: This is a 65-year-old ____ with history of coronary artery disease admi tted because of chest pain, had a transthoracic echocardiogram done which showed mild concentric lef t ventricular hypertrophy, ejection fraction of 45%, moderate enlargement of the left atrium, severe aortic stenosis, aortic valve maximum gradient of 62 mmHg and mean gradient of 35 mmHg with an aort ic valve area of 0.5 cm squared. Mitral valve had mild regurgitation. PAST MEDICAL HISTORY: Coronary artery disease, status post PCI, cardiomyopathy, diabetes, hypertens ion, peripheral arterial disease with lower extremity wound. ALLERGIES: NONE. SOCIAL HISTORY: No smoking, drinking or drug use. MEDICATIONS: List reviewed. PHYSICAL EXAMINATION: VITAL SIGNS: Blood pressure is 165/75, pulse is 77, respirations 17, saturation is 98% on room air, temperature is 98.3. CARDIOVASCULAR: Regular rate and rhythm with a systolic murmur. LUNGS: Clear. ABDOMEN: Soft. EXTREMITIES: Warm. LABORATORY VALUES: White count 7.4, hemoglobin 11.5, platelet count 115. INR 1.2 and a creatinine of 1.4. IMPRESSION: 1. Severe aortic stenosis. 2. Coronary artery disease. RECOMMENDATIONS: This patient is at high risk of undergoing aortic valve replacement secondary to o besity, low ejection fraction and elevation of the creatinine. We will discuss options with the ref erring physicians. Dictated By: ILIANA GLASGOW MD FM/NTS Conf#: [id number] DID#: [id number] CC: KATE OAKLEY;*EndCC*
[2016-12-19] MEDS: FUROSEMIDE 20 MG INJ IV SCH (07:01)
[2016-12-19] MEDS: HEPARIN 5,000 UNIT/0.5 ML VIAL SC SCH ×2 (07:06→12:02)
[2016-12-19 07:18] LABS: ABNORMAL IP MESSAGE 1; BASOPHILS % 0.5 % (0.0-2.0); EOSINOPHILS # 0.2 10^3/ul (0.0-0.5); EOSINOPHILS % 2.8 % (0.0-7.0); HEMATOCRIT 35.1 % (37.0-47.0); HEMOGLOBIN 11.3 g/dl (12.0-16.0); LYMPHOCYTES # 1.2 10^3/ul (0.8-2.9); LYMPHOCYTES % 15.7 % (15.0-51.0); MEAN CORPUSCULAR HGB CONC 32.2 g/dl (32.0-37.0); MEAN CORPUSCULAR VOLUME 90.2 fl (82.0-101.0); MEAN PLATELET VOLUME 12.8 fl (7.4-10.4); MONOCYTE # 0.8 10^3/ul (0.3-0.9); MONOCYTES % 10.2 % (0.0-11.0); NEUTROPHIL # 5.6 10^3/ul (1.6-7.5); NEUTROPHILS % 70.5 % (39.0-77.0); RED BLOOD COUNT 3.89 10^6/ul (4.20-5.40); RED CELL DISTRIBUTION WIDTH 13.6 % (11.5-14.5); WHITE BLOOD COUNT 7.9 10^3/ul (4.8-10.8)
[2016-12-19 07:34] LABS: INR 1.2; PROTIME 15.3 Sec (12.2-14.2); PT RATIO 1.2
[2016-12-19 07:40] LABS: PLATELET COUNT 70 10^3/UL (140-415); POSITIVE DIFF @See below
[2016-12-19 07:42] LABS: ALBUMIN 2.5 g/dl (3.3-4.9); ALBUMIN/GLOBULIN RATIO 0.83; BILIRUBIN,INDIRECT 0.4 mg/dl (0-1.1); BILIRUBIN,TOTAL 0.4 mg/dl (0.2-1.3); CALCIUM 8.3 mg/dl (8.4-10.2); CHOL/HDL RATIO 2.6 RATIO; CREATININE 1.48 mg/dl (0.44-1.00); MAGNESIUM 1.8 mg/dl (1.7-2.5); POTASSIUM 3.9 mmol/L (3.5-5.1); TOTAL PROTEIN 5.5 g/dl (6.1-8.1)
[2016-12-19 07:51] LABS: CK-MB 0.94 ng/ml (0.0-2.4); TROPONIN-I 0.038 ng/ml (0.00-0.12)
[2016-12-19] MEDS: INSULIN ASPART [NOVOLOG] 3 ML PEN SC SCH ×6 (08:00→17:25)
[2016-12-19] MEDS: SPIRONOLACTONE 25 MG TAB PO SCH (08:26)
[2016-12-19] MEDS: GABAPENTIN 300 MG CAP PO SCH ×2 (08:27→11:52)
[2016-12-19] MEDS: LISINOPRIL 5 MG TAB PO SCH (08:28)
[2016-12-19] MEDS: INSULIN GLARGINE [LANtus] 3 ML PEN SC SCH (09:14)
[2016-12-19 09:17] LABS: EOSINOPHILS % (M) 3 % (0-7); MONOCYTES % (M) 8 % (0-11); PLATELET ESTIMATE DECREASED; REACTIVE LYMPHOCYTES% (M) 1 % (0-0)
--- NOTE | 2016-12-19 09:21 | CONS ---
Date/Time of Note Date/Time of Note DATE: 12/19/16 TIME: 09:18 Consult Date/Type/Reason Admit Date/Time Dec 17, 2016 at 14:32 Initial Consult Date 12/18/16 Type of Consultation: cardiology Ordering Provider: NYA MCNEILL [employer] Subjective S: D/W staff and rhythm was reviewed. Patient remains in normal sinus rhythm/ sinus bradycardia. She has had episodes of bradycardia. She denies any chest pain or pressure to me she denies any shortness of breath to me. Denies any palpitation to me. Denies any syncope to me. She does complain of back itching though. O: General: obese female. no acute distress HEENT: NC/AT. pupils are equal. round. NECK: . no stridor. CV: RRR. systolic murmur; no gallop or rubs. PULM: no wheezing . mild basilar rhonchi. GI: SOFT, obese. NT, ND, no rebound or guarding Extremity: + chronic looking B/L LE edema. no clubbing. neuro: awake and alert, OX3. Psych: calm and pleasant rectal: deferred : deferred Derm: no rash on the back ECG NSR RBBB ECHO reviewed personally; 1. Mild concentric left ventricular hypertrophy. Mild enlargement of left ventricle cavity. Mild global left ventricular systolic dysfunction. Ejection fraction is visually estimated at 45 %. Abnormal Diastolic Function. 2. There is moderate enlargement of left atrium. 3. Mild mitral leaflet calcification. Mild mitral annular calcification. Mild mitral valve regurgitation. 4. Aortic valve not well visualized. Severe aortic stenosis. Aortic valve Max velocity 3.95 m/sec. Max PG 62.00 mmHg. Mean PG 35.00 mmHg. Aortic valve area 0.5 cm2. Aortic cusps appear moderately calcified. 5. Normal appearance of the tricuspid valve. Estimated peak PA systolic pressure 38 mmHg. There is mild tricuspid regurgitation. 6. VERY SUBOPTIMAL STUDY. Objective Vital Signs Date Time Temp Pulse Resp B/P Pulse Ox O2 Delivery O2 Flow Rate FiO2 12/19/16 08:00 61 12/19/16 07:19 99.0 20 149/67 94 12/17/16 20:43 Room Air Intake and Output 12/18/16 12/18/16 12/19/16 15:00 23:00 07:00 Intake Total 2000 ml 900 ml Output Total 300 ml 1200 ml Balance 1700 ml -300 ml Results/Medications Result Diagram: 12/19/16 0706 12/19/16 0706 Results 24 hrs Laboratory Tests Test 12/18/16 12:47 12/18/16 17:19 12/18/16 21:26 12/19/16 07:05 Bedside Glucose 166 119 117 Prothrombin Time 15.3 H Prothrombin Time Ratio 1.2 INR International Normalized Ratio 1.20 Free Thyroxine 1.54 Test 12/19/16 07:06 12/19/16 08:06 White Blood Count 7.9 Red Blood Count 3.89 L Hemoglobin 11.3 L Hematocrit 35.1 L Mean Corpuscular Volume 90.2 Mean Corpuscular Hemoglobin 29.0 Mean Corpuscular Hemoglobin Concent 32.2 Red Cell Distribution Width 13.6 Platelet Count 70 #L Mean Platelet Volume 12.8 H Neutrophils % 70.5 Segmented Neutrophils % (Manual) 69 Band Neutrophils % (Manual) 5 H Lymphocytes % 15.7 Lymphocytes % (Manual) 14 L Reactive Lymphocytes % (Manual) 1 H Monocytes % 10.2 Monocytes % (Manual) 8 Eosinophils % 2.8 Eosinophils % (Manual) 3 Basophils % 0.5 Nucleated Red Blood Cells % 0.0 Neutrophils # 5.6 Neutrophils # (Manual) 5.5 Band Neutrophils # 0.3 Absolute Lymphocytes (Manual) 1.1 Lymphocytes # 1.2 Reactive Lymphocytes # 0.0 Monocytes # 0.8 Absolute Monocytes (Manual) 0.6 Eosinophils # 0.2 Basophils # 0.0 Nucleated Red Blood Cells # 0.0 Platelet Estimate DECREASED Sodium Level 136 Potassium Level 3.9 Chloride Level 103 Carbon Dioxide Level 25 Anion Gap 12 Blood Urea Nitrogen 33 H Creatinine 1.48 H Glucose Level 108 # Calcium Level 8.3 L Magnesium Level 1.8 Total Bilirubin 0.4 Direct Bilirubin 0.00 Indirect Bilirubin 0.4 Aspartate Amino Transf (AST/SGOT) 18 Alanine Aminotransferase (ALT/SGPT) 33 Alkaline Phosphatase 289 H Creatine Kinase 57 Creatine Kinase Index 1.6 Creatinine Kinase MB (Mass) 0.94 Troponin I 0.038 B-Type Natriuretic Peptide 8440 H Total Protein 5.5 L Albumin 2.5 L Globulin 3.00 Albumin/Globulin Ratio 0.83 Triglycerides Level 91 Cholesterol Level 114 LDL Cholesterol, Calculated 53 HDL Cholesterol 43 Cholesterol/HDL Ratio 2.6 Bedside Glucose 111 Medications Current Medications Carvedilol (Coreg) 6.25 mg BID PO Last administered on 12/19/16 08:28; Admin Dose 6.25 MG; Start 12/17/16 at 21:00 Gabapentin (Neurontin) 300 mg TID PO Last administered on 12/19/16 08:27; Admin Dose 300 MG; Start 12/17/16 at 21:00 Atorvastatin Calcium (Lipitor) 20 mg DAILY@21 PO Last administered on 21:24; Admin Dose 20 MG; Start 12/17/16 at 21:00 Diagnostic Test (Pha) (Accu-Chek) 1 ea 02 XX ; Start 12/18/16 at 02:00 Insulin Glargine (Lantus) 25 unit DAILY@08 SC Last administered on 12/18/16 13:04; Admin Dose 25 UNIT; Start 12/18/16 at 08:00 Lisinopril (Zestril) 5 mg DAILY PO Last administered on 12/19/16 08:28; Admin Dose 5 MG; Start 12/18/16 at 09:00 Ondansetron HCl (Zofran Inj) 4 mg Q6H PRN IV NAUSEA AND/OR VOMITING; Start at 17:30 Acetaminophen (Tylenol Tab) 650 mg Q6H PRN PO PAIN LEVEL 1-3 OR FEVER; Start 12/17/16 at 17:30 Acetaminophen/ Hydrocodone Bitart ([place] (5/325)) 1 tab Q6H PRN PO PAIN LEVEL 4 -6; Start 12/17/16 at 17:30 Heparin Sodium (Porcine) (Heparin (5000 Units/0.5 ml)) 5,000 unit Q8 SC Last administered on 12/19/16 07:06; Admin Dose 5,000 UNIT; Start 12/17/16 at 22: 00 Miscellaneous Information 1 ea NOTE XX ; Start 12/17/16 at 17:30 Glucose (Glutose) 15 gm Q15M PRN PO DECREASED GLUCOSE; Start 12/17/16 at 17:30 Glucose (Glutose) 22.5 gm Q15M PRN PO DECREASED GLUCOSE; Start 12/17/16 at 17: 30 Dextrose (D50w Syringe) 25 ml Q15M PRN IV DECREASED GLUCOSE; Start 12/17/16 at 17:30 Dextrose (D50w Syringe) 50 ml Q15M PRN IV DECREASED GLUCOSE; Start 12/17/16 at 17:30 Glucagon (Glucagen) 1 mg Q15M PRN IM DECREASED GLUCOSE; Start 12/17/16 at 17: 30 Glucose (Glutose) 15 gm Q15M PRN BUCCAL DECREASED GLUCOSE; Start 12/17/16 at 17:30 Hydralazine HCl (Apresoline) 10 mg Q4H PRN IV ELEVATED BLOOD PRESSURE Last administered on 12/18/16 02:02; Admin Dose 10 MG; Start 12/18/16 at 01:30 Spironolactone (Aldactone) 25 mg DAILY PO Last administered on 12/19/16 08:26 ; Admin Dose 25 MG; Start 12/18/16 at 12:00 Assessment/Plan Chief Complaint/Hosp Course 1. CHF: chronic due to valvular heart disease and systolic and diastolic heart failure 2. : probably severe. 3. CAD 4. HX PCI LCX 2011 5. HX CABG: !~15-20 years ago 6. DM: poorly controlled. 7 .HTN: now under control on meds 8.. dyslipidemia 9. morbid obeisty 10/ chronic venous stasis 11. PAD REC: ASA cont current coreg and CL-I will change to po lasix statin aggressive risk factor modification including DM control recommend evaluation for MINGO elective RHC/LHC as outpt to further evlaluate for . will need ID eval and clearance for AVR given her wound LE. . Dr Vann consult was appreciated. I appears that the patient is a high risk for aortic valve replacement. We will consider her for TAVR if severe on cath. I will add Plavix to her regimen for now as well. Thank you for his referral. We will continue to follow along with you. BRIDGET SAMS MD [facility] Problems: BRIDGET SAMS MD Dec 19, 2016 09:21
[2016-12-19] MEDS ORDERED: CLOPIDOGREL 75 MG TAB PO SCH (09:30)
[2016-12-19] MEDS: FUROSEMIDE 40 MG TAB PO SCH ×2 (10:38→17:24)
--- NOTE | 2016-12-19 13:14 | PN ---
Date/Time of Note Date/Time of Note DATE: 12/19/16 TIME: 13:13 Assessment/Plan Lines/Catheters IV Catheter Type (from Nrsg): Saline Lock [place] in Place (from Nrsg): Yes Assessment/Plan Chief Complaint/Hosp Course RECOMMENDATIONS: This patient is at high risk of undergoing aortic valve replacement secondary to obesity, low ejection fraction and elevation of the creatinine. We will discuss options with the referring physicians. plan for out pt cath Problems: Subjective 24 Hr Interval Summary Constitutional: improved Pain Control: mild Exam/Review of Systems Vital Signs Vitals Vital Signs Date Time Temp Pulse Resp B/P Pulse Ox O2 Delivery O2 Flow Rate FiO2 12/19/16 12:00 56 12/19/16 11:16 98.5 20 151/65 94 12/17/16 20:43 Room Air Intake and Output 12/18/16 12/18/16 12/19/16 15:00 23:00 07:00 Intake Total 2000 ml 900 ml Output Total 300 ml 1200 ml Balance 1700 ml -300 ml Results Result Diagram: 12/19/16 0706 12/19/16 0706 IILANA GLASGOW MD Dec 19, 2016 13:14
--- NOTE | 2016-12-19 15:26 | PDOCDIS ---
Discharge Instructions DIAGNOSIS Discharge Diagnosis Hypertensive urgency, aortic stenosis. CONDITION Patient Condition: Stable HOME CARE INSTRUCTIONS: Special Diet: carb controlled FOLLOW UP/APPOINTMENTS Follow-up Plan Jhony Ramos MD Specialty Cardiology Office Address [phone] [address] Office OTHER ORDERS: Other Orders: 1. Take medications as per prescription. 2. Follow a carbohydrate controlled, low-cholesterol diet 3. Follow-up with your primary care physician 1 week. 4. Follow-up with outpatient cardiology [] in 2 weeks. 5. Resume prehospitalization activities. NYA MCNEILL NP Dec 19, 2016 15:26
[2016-12-19] MEDS ORDERED: CLOP75TA28 PO (15:33)
[2016-12-19] MEDS ORDERED: NOVO3I SC (15:33)
[2016-12-19] MEDS ORDERED: LANT3I SC (15:33)
--- NOTE | 2016-12-19 16:04 | DS ---
Date/Time of Note Date/Time of Note DATE: 12/19/16 TIME: 16:02 Discharge Summary Admission/Discharge Info Admit Date/Time Dec 17, 2016 at 14:32 Discharge Date/Time Discharge Diagnosis 1. Hypertensive urgency. 2. Type 2 diabetes mellitus. 3. Bilateral lower extremity lymphedema with venous stasis changes. 4. CAD. Status post CABG. 5. Chronic CHF. Systolic and diastolic dysfunction. 6. Aortic stenosis. 7. Acute kidney injury. 8. Obesity. Patient Condition: Stable Consults 1. Jhony Ramos MD, Cardiology. 2. Surinder Vann MD, Cardiac Surgery. Procedures 2D Echocardiogram Conclusions 1. Mild concentric left ventricular hypertrophy. Mild enlargement of left ventricle cavity. Mild global left ventricular systolic dysfunction. Ejection fraction is visually estimated at 45 %. Abnormal Diastolic Function. 2. There is moderate enlargement of left atrium. 3. Mild mitral leaflet calcification. Mild mitral annular calcification. Mild mitral valve regurgitation. 4. Aortic valve not well visualized. Severe aortic stenosis. Aortic valve Max velocity 3.95 m/sec. Max PG 62.00 mmHg. Mean PG 35.00 mmHg. Aortic valve area 0.5 cm2. Aortic cusps appear moderately calcified. 5. Normal appearance of the tricuspid valve. Estimated peak PA systolic pressure 38 mmHg. There is mild tricuspid regurgitation. 6. VERY SUBOPTIMAL STUDY. CXR IMPRESSION: Moderate cardiomegaly. The patient is status post sternotomy. The superior most fixation sternal wire is broken. Calcified aorta consistent with atherosclerotic disease. Bilateral Lower Extremity Venous Doppler Study IMPRESSION: No sonographic evidence for deep venous thrombosis. Hx of Present Illness Reason for admission: Elevated blood pressure and elevated blood sugars. This is a 65-year-old female with past medical history of CAD status post CABG, essential hypertension, diabetes mellitus, dyslipidemia, osteoarthritis, and peripheral neuropathy who was visiting the wound care clinic for management of her bilateral lower extremity venous stasis changes. Over there, the patient was noticed to have high blood glucose and elevated blood pressure readings. Consequently, the patient was transferred to the emergency room at [facility]. The patient denied any dyspnea. The patient denied any chest pain. She denied any nausea, vomiting, diaphoresis, dysuria, or hematuria. The patient verbalized that she has not been compliant with her home antihypertensives and home antidiabetic medications. The patient is not the best historian. She was not sure of her home medications. In the emergency room, the patient was noticed to have elevated BNP [[id number]]. The patient's chest x-ray showed cardiomegaly with no significant pulmonary vascular congestion. The patient's 12-lead EKG showed sinus rhythm with right bundle branch block. The patient's bilateral lower extremity venous Doppler study was negative for any DVT. The patient had a blood pressure of 213/101 mm Hg. She was treated with IV Lasix and transdermal nitroglycerin in the emergency room. Hospital Course The patient was admitted to inpatient setting. The patient's cardiac medications were adjusted to obtain optimal blood pressure control. A 2D echocardiogram was obtained to evaluate the left ventricular ejection fraction. The patient's 2D echocardiogram showed ejection fraction of 45%. The echo also revealed severe aortic stenosis with aortic valve maximum velocity of 3.95 m/s with aortic valve area of 0.5 cm. The senior industrial engineer who did the patient's 2D echo was consulted. Countersinker recommended cardiac surgery evaluation. Cardiac surgery was consulted. As per the cardiac surgeon the patient is at high risk for undergoing aortic valve replacement secondary to obesity, underlying cardiomyopathy, and other comorbidities. The patient needs elective right heart and left heart catheterization as outpatient to further evaluate the extent of aortic stenosis. The patient is probably a candidate for TAVR. The patient was maintained on sliding scale insulin along with basal insulin and pre-meal insulin. The patient's insulin dosing was adjusted to obtain optimal blood sugar control. The patient's hemoglobin A1c was 8.8. The patient was noticed to have some underlying worsening renal function, most probably acute kidney injury. The patient was nonoliguric. The patient's acute kidney injury could be from multiple causes including underlying hemodynamics along with the use of nephrotoxic medications. The patient did not show any evidence of fluid overload throughout the patient's hospital course. The patient is currently hemodynamically stable and the patient is stable to be discharged home to be followed up with outpatient cardiology for further evaluation of her underlying aortic stenosis. Although the patient was started on CL inhibitors and aldosterone antagonist, this will be put on hold at this time because of worsening renal function. Nevertheless, the patient appears to be euvolemic. Patient can follow-up with her primary care physician and senior industrial engineer for further adjustment of her cardiac medications. Discharge Instructions 1. Take medications as per prescription. 2. Follow a carbohydrate controlled, low-cholesterol diet 3. Follow-up with your primary care physician 1 week. 4. Follow-up with outpatient cardiology [] in 2 weeks. 5. Resume prehospitalization activities. The patient verbalized understanding of her discharge instructions. At this time I would like to thank all the consultants for seeing the patient and providing clinical recommendations. The case and management of this patient was fully discussed with Dr. Tam. Home Meds Active Scripts Insulin Glargine* (Lantus*) 100 Unit/Ml Soln, 25 UNIT SC DAILY@08 for 30 Days, # 1 VIAL Prov:NYA MCNEILL ROVING MARKER 12/19/16 Insulin Aspart* (Novolog Insulin Pen*) 100 Unit/Ml Soln, 10 UNIT SC WITH MEALS for 30 Days, #1 VIAL Prov:NYA MCNEILL ROVING MARKER 12/19/16 Clopidogrel Bisulfate (Clopidogrel) 75 Mg Tablet, 75 MG PO DAILY, #30 TAB Prov:NYA MCNEILL ROVING MARKER 12/19/16 Reported Medications Carvedilol* (Carvedilol*) 6.25 Mg Tablet, 6.25 MG PO BID, #60 TAB 12/17/16 Gabapentin* (Gabapentin*) 300 Mg Capsule, 300 MG PO TID, #90 CAP 12/17/16 Simvastatin* (Zocor*) 40 Mg Tablet, 40 MG PO QHS, #30 TAB 12/17/16 Furosemide* (Furosemide*) 40 Mg Tablet, 40 MG PO BID, TAB 12/17/16 Discontinued Reported Medications Insulin Aspart* (Novolog Insulin Pen*) 100 Unit/Ml Soln, 30 UNIT SC WITH MEALS, EA 12/17/16 Insulin Glargine* (Lantus*) 100 Unit/Ml Soln, 50 UNIT SC QHS, #1 VIAL 12/17/16 Apixaban* (Eliquis*) 2.5 Mg Tablet, 2.5 MG PO BID, TAB 12/17/16 Bumetanide* (Bumetanide*) 1 Mg Tablet, 1 MG PO DAILY, TAB 12/17/16 Insulin Regular, Human* (Novolin R*) 100 U/Ml Vial, 0 SC AC MEALS AND BEDTIME 08/30/11 Hydrocodone Bit-Acetaminophen* (Hitchcock*) 1 Tab Tablet, 1 TAB PO TID 08/30/11 Metoprolol Tartrate* (Lopressor*) 25 Mg Tab, 25 MG PO Q12 08/30/11 Furosemide* (Lasix*) 10 Mg/Ml Soln, 20 MG IV Q8 08/30/11 Potassium Chloride (Klor-Con) 10 Meq Tablet.sa, 10 MEQ PO TID 08/30/11 Insulin Detemir* (Levemir*) 100 U/Ml Vial, 50 U SQ DAILY 08/30/11 Hydrochlorothiazide (Hydrochlorothiazide) 25 Mg Tablet, 25 MG PO DAILY 08/30/11 Benazepril/Hydrochlorothiazide (Lotensin Hct 20-12.5 Tablet) 1 Tab Tablet, 1 TAB PO DAILY 08/30/11 Docusate Sodium* (Colace*) 100 Mg Capsule, 100 MG PO BID 08/30/11 Duloxetine Hcl* (Cymbalta*) 30 Mg Capsule.dr, 30 MG PO BID 08/30/11 Clonidine (Clonidine (Pediatric Compound)) 0.1 Mg/Ml Susp, 2 MG PO BID 08/30/11 Aspirin Ec (Aspir 81) 81 Mg Tablet.dr, 81 MG PO DAILY 08/30/11 Simvastatin* (Zocor*) 40 Mg Tablet, 40 MG PO HS 08/30/11 Famotidine* (Pepcid*) 40 Mg Tablet, 40 MG PO DAILY 08/30/11 Follow-up Plan Jhony Ramos MD Specialty Cardiology Office Address [phone] [place] [id number] Office Primary Care Provider Gildardo Rudolph Time spent on discharge: > 30 minutes Pending Labs Laboratory Tests Test 12/18/16 17:19 12/18/16 21:26 12/19/16 07:05 12/19/16 07:06 Bedside Glucose 119mg/dL (70-220) 117mg/dL (70-220) Prothrombin Time 15.3Sec (12.2-14.2) Prothrombin Time Ratio 1.2 INR International Normalized Ratio 1.20 Free Thyroxine 1.54ng/dl (0.78-2.44) White Blood Count 7.910^3/ul (4.8-10.8) Red Blood Count 3.8910^6/ul (4.20-5.40) Hemoglobin 11.3g/dl (12.0-16.0) Hematocrit 35.1% (37.0-47.0) Mean Corpuscular Volume 90.2fl (82.0-101.0) Mean Corpuscular Hemoglobin 29.0pg (29.0-33.0) Mean Corpuscular Hemoglobin Concent 32.2g/dl (32.0-37.0) Red Cell Distribution Width 13.6% (11.5-14.5) Platelet Count 7010^3/UL (140-415) Mean Platelet Volume 12.8fl (7.4-10.4) Neutrophils % 70.5% (39.0-77.0) Segmented Neutrophils % (Manual) 69% (39-77) Band Neutrophils % (Manual) 5% (0-4) Lymphocytes % 15.7% (15.0-51.0) Lymphocytes % (Manual) 14% (15-51) Reactive Lymphocytes % (Manual) 1% (0-0) Monocytes % 10.2% (0.0-11.0) Monocytes % (Manual) 8% (0-11) Eosinophils % 2.8% (0.0-7.0) Eosinophils % (Manual) 3% (0-7) Basophils % 0.5% (0.0-2.0) Nucleated Red Blood Cells % 0.0/100WBC (0.0-0.0) Neutrophils # 5.610^3/ul (1.6-7.5) Neutrophils # (Manual) 5.510^3/ul (1.7-7.5) Band Neutrophils # 0.310^3/ul (0.0-0.6) Absolute Lymphocytes (Manual) 1.110^3/ul (0.8-2.9) Lymphocytes # 1.210^3/ul (0.8-2.9) Reactive Lymphocytes # 0.010^3/ul (0.0-0.0) Monocytes # 0.810^3/ul (0.3-0.9) Absolute Monocytes (Manual) 0.610^3/ul (0.3-0.9) Eosinophils # 0.210^3/ul (0.0-0.5) Basophils # 0.010^3/ul (0.0-0.1) Nucleated Red Blood Cells # 0.010^3/ul (0.0-0.0) Platelet Estimate DECREASED Sodium Level 136mmol/L (135-144) Potassium Level 3.9mmol/L (3.5-5.1) Chloride Level 103mmol/L (97-110) Carbon Dioxide Level 25mmol/L (21-31) Anion Gap 12 (8-16) Blood Urea Nitrogen 33mg/dl (7-20) Creatinine 1.48mg/dl (0.44-1.00) Glucose Level 108mg/dl (70-220) Calcium Level 8.3mg/dl (8.4-10.2) Magnesium Level 1.8mg/dl (1.7-2.5) Total Bilirubin 0.4mg/dl (0.2-1.3) Direct Bilirubin 0.00mg/dl (0.00-0.20) Indirect Bilirubin 0.4mg/dl (0-1.1) Aspartate Amino Transf (AST/SGOT) 18IU/L (15-46) Alanine Aminotransferase (ALT/SGPT) 33IU/L (13-69) Alkaline Phosphatase 289IU/L (42-121) Creatine Kinase 57IU/L (23-200) Creatine Kinase Index 1.6 Creatinine Kinase MB (Mass) 0.94ng/ml (0.0-2.4) Troponin I 0.038ng/ml (0.00-0.12) B-Type Natriuretic Peptide 8440PG/ML (0-125) Total Protein 5.5g/dl (6.1-8.1) Albumin 2.5g/dl (3.3-4.9) Globulin 3.00g/dl (1.3-3.2) Albumin/Globulin Ratio 0.83 Triglycerides Level 91mg/dl (0-149) Cholesterol Level 114mg/dl (100-200) LDL Cholesterol, Calculated 53mg/dl HDL Cholesterol 43mg/dl (35-98) Cholesterol/HDL Ratio 2.6RATIO Test 12/19/16 08:06 12/19/16 11:46 Bedside Glucose 111mg/dL (70-220) 173mg/dL (70-220) NYA MCNEILL NP Dec 19, 2016 16:04
== END 2016-12-19 19:35 | disposition home or self-care (01) ==
LOC: E/R 11:08 → INTOOBSV 14:32 → MS4 14:32
PROVIDERS: ADMIT Internal Medicine; ATTEND Internal Medicine
DX: I11.0 Hypertensive heart disease with heart failure (principal); I50.42 Chronic combined systolic (congestive) and diastolic (congestive) heart failure; E11.65 Type 2 diabetes mellitus with hyperglycemia; Z79.4 Long term (current) use of insulin; N17.9 Acute kidney failure, unspecified; I25.10 Atherosclerotic heart disease of native coronary artery without angina pectoris; Z95.1 Presence of aortocoronary bypass graft; I35.0 Nonrheumatic aortic (valve) stenosis; E66.9 Obesity, unspecified; Z68.43 Body mass index [BMI] 50.0-59.9, adult; I89.0 Lymphedema, not elsewhere classified; I87.8 Other specified disorders of veins; E78.5 Hyperlipidemia, unspecified; Z79.82 Long term (current) use of aspirin
CPT/HCPCS: 36415; 71010; 80048; 80053; 80061; 82550; 82553; 82962; 83036; 83735; 83880; 84100; 84439; 84443; 84484; 85025; 85610; 85730; 93005; 93306; 93970; 96372; 96374; 96375; 99285; G0378; J0360; J1200; J1644; J1815; J1940

== ENCOUNTER 2017-04-19 12:11 | Inpatient (IN) | END 2017-04-26 14:25 | DRG 286 ==